=== PATIENT | female | born 1975 | race Caucasian/White ===

== ENCOUNTER 2021-09-12 22:40 | Emergency (ER) | payer OTHER, SELFPAY ==
--- NOTE | 2021-09-12 | ECG_ITS ---
Test Reason : med clearance Blood Pressure : / mmHG Vent. Rate : 076 BPM Atrial Rate : 076 BPM P-R Int : 140 ms QRS Dur : 082 ms QT Int : 390 ms P-R-T Axes : 079 090 059 degrees QTc Int : 438 ms Normal sinus rhythm Rightward axis Borderline ECG No previous ECGs available Referred By: Kalin Dial Electronically Signed By:Guy Luque
[2021-09-12 22:49] VITALS: BP 129/82; PULSE 99; RESP 18; TEMP 36.6; O2SAT 98; BMI 23.4
[2021-09-12 23:31] LABS: COVID-19 Test Negative (Negative)
[2021-09-12 23:40] LABS: Basophils Percent Auto 0.4 % (0-2); Eosinophils Absolute Auto 0.1 X10*3/uL (0.0-0.4); Eosinophils Percent Auto 1.7 % (0-4); Hematocrit 43.2 % (37.0-47.0); Hemoglobin 14.5 g/dl (12.0-16.0); Imm Gran Abs Auto 0.02 X10*3/uL (0.00-0.03); Imm Gran Pct Auto 0.3 % (0.0-0.4); Lymphocytes Absolute Auto 1.9 X10*3/uL (1.2-4.9); Lymphocytes Percent Auto 26.5 % (20-40); MANUAL DIFF FLAG NO; Mean Corpuscular HGB Conc 33.6 g/dl (31.0-35.0); Mean Corpuscular Hemoglobin 30.9 pg (27.0-33.0); Mean Corpuscular Volume 92.1 fL (80.0-98.0); Mean Platelet Volume 10.4 fL (9.4-12.3); Monocytes Absolute Auto 0.4 X10*3/uL (0.1-1.2); Monocytes Percent Auto 5.5 % (2-11); Neutrophils Absolute Auto 4.8 x10*3/uL (2.0-8.3); Neutrophils Percent Auto 65.6 % (45-73); Platelet Count 251 X10*3/uL (160-400); Red Blood Count 4.69 X10*6/uL (4.20-5.50); Red Cell Distribution Width 14.9 % (11.0-16.0); White Blood Count 7.2 X10*3/uL (4.8-10.8)
[2021-09-13] LABS: Ethanol 241 mg/dL
--- NOTE | 2021-09-13 00:03 | PC.NURSE ---
Provider just sutured her open skin on her base of right thumb, area washed with NS, pad dry, applied thin layer of Bacitracin, covered with dressing, secured with tape, as ordered by the provider, will continue to monitor.
[2021-09-13 00:12] LABS: Alanine Aminotransferase 21 U/L (0-31); Albumin Level 4.3 g/dL (3.5-5.0); Alkaline Phosphatase 99 U/L (39-117); Anion Gap 13 (12-20); Aspartate Amino Transferase 33 U/L (5-31); Bilirubin Direct 0.2 mg/dL (0.0-0.5); Bilirubin Total 0.5 mg/dL (0.0-1.0); Blood Urea Nitrogen 10 mg/dL (9-16); Carbon Dioxide 30 mmol/L (22-29); Chloride 107 mmol/L (96-108); Creatinine Clr Calc Pharmacy 53.1; Estimated Glomerular Filt Rate > 60; Glucose Random 75 mg/dL (60-115); Magnesium 2.5 mg/dL (1.6-2.6); Potassium 3.4 mmol/L (3.3-5.1); Sodium 147 mmol/L (135-145); Total Protein 7.5 g/dL (6.5-8.0)
[2021-09-13 00:48] LABS: Acetaminophen LAB < 1 mcg/mL (<30); Salicylate < 5.0 mg/dL (15-30)
--- NOTE | 2021-09-13 02:15 | ED_ITS ---
HPI - Psych General Chief Complaint: Psychiatric Symptoms Stated Complaint: si Time Seen by Provider: 09/12/21 23:26 Source: patient and RN notes reviewed Mode of arrival: EMS Limitations: no limitations History of Present Illness HPI Narrative: 45-year-old female who presents to the emergency department for evaluation of alcohol intoxication, suicidal ideation and laceration to her right thumb. According to the nursing notes, the patient made suicidal statements and stated that she wanted to slit her throat. She punched a window and cut her right thumb. The patient told me that her son was shot and killed 3 days prior. She states that this is her 2nd son that was murdered. She states that she has a history of depression, anxiety and PTSD and did not take her medications today. She states that she was drinking Tequila. She did tell me that she punched a window and cut her right thumb. She denied suicidal ideation during my interview. 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 Past surgical history: Right ankle surgery. Social history: The patient states that she was sober for 4 years but started drinking again. She does admit to drinking alcohol this evening. She smokes 1/2 pack of cigarettes per day 28 years. She states she does smoke crack cocaine. Social History Social History Patient : No Physical Exam Vital Signs: Vital Signs: Last Vital Signs Temp 97.8 F 09/12/21 22:49 Pulse 99 09/12/21 22:49 Resp 18 09/12/21 22:49 BP 129/82 09/12/21 22:49 Pulse Ox 98 09/12/21 22:49 BMI result Body Mass Index 23.4 Const: Other: Cooperative female patient, she does have an odor of alcohol on her breath and does appear to be intoxicated, she answers all questions appropriately HENMT: Head: Yes normal to inspection, Yes normocephalic and Yes atraumatic Ears: external ears normal General nose exam: Normal external nose present Face and sinus: Yes normal facial exam Mouth: Normal oral and palatal mucosa present Throat: Yes posterior oropharynx normal Eyes: General: appearance normal, both eyes and all related structures Pupils: Equal, round and reactive pupils present Neck: Neck: Yes normal visual inspection, Yes no lymphadenopathy, Yes trachea midline and Yes supple Chest: Chest palpation & inspection: normal inspection of the chest and normal palpation of entire chest wall Resp: Effort & Inspection: normal respiratory effort and able to speak in complete sentences Auscultation: clear to auscultation bilaterally Cardio: Rate: regular rate Rhythm: regular rhythm Heart sounds: S1 normal heart sound present, S2 normal heart sound present and no murmurs GI: Inspection: Yes normal to inspection Palpation (GI): Soft to palpation, nontender and no guarding Auscultation: normal bowel sounds : General: Yes no CVA tenderness Back/Spine/Pelvis: Back: no CVA tenderness Skin: General skin exam: no rashes or lesions noted Neuro: Cranial nerves: Yes CN's II-XII intact bilaterally and Yes Equal, round and reactive pupils present Cognition (Neuro): normal cognition Motor exam (neuro): 5/5 motor strength present throughout Extrem: Other: 3.0 cm stellate laceration to the right dorsal aspect of the PIP joint of her thumb, the laceration is full skin thickness, the patient has full range of motion with normal sensory exam. Psych: Appearance: grossly normal Speech and movement: Normal speech and movement present Affect: Other affect and mood findings present (Appears intoxicated) Attitude: cooperative Thought process: Normal thought process present Thought content: suicidality Course Course Course Narrative: 45-year-old female with a history of depression, anxiety, PTSD, alcohol use disorder and cocaine use disorder who presents emergency department for evaluation of suicidal statement, alcohol intoxication and laceration to her right thumb after punching a window. Vital signs were normal. Her exam was consistent with alcohol intoxication. She did have a stellate laceration to her right PIP joint of her thumb which I repaired with 7 sutures, 3.0 Ethilon. These sutures will need to be in place for 7-10 days. Patient told me that her tetanus status was up-to-date she believes that she got 1 within 5 years. The patient is on a Section 12. 0224: Laboratory evaluation: CBC was normal. Sodium was elevated 147, bicarb was elevated 30, AST was elevated 33. Blood alcohol level was 241 consistent with acute intoxication. Acetaminophen and salicylate levels were below detectable limits. COVID-19 test was negative. Drug urine tox screen is pending urine collection. 0224: Start physician observation: The patient will be observed until she is sober and can talk to our crisis team. The patient is not on a Section 12 at this time. The patient's care was turned over to my colleague, Dr. Johanna Barkley. MDM - Psych Lab Data Result diagrams: 09/12/21 23:34 09/12/21 23:34 Labs: Lab Results 09/12/21 09/12/21 09/12/21 Range/Units 23:08 23:34 23:34 WBC 7.2 (4.8-10.8) X10*3/uL RBC 4.69 (4.20-5.50) X10*6/uL Hgb 14.5 (12.0-16.0) g/dl Hct 43.2 (37.0-47.0) % MCV 92.1 (80.0-98.0) fL MCH 30.9 (27.0-33.0) pg MCHC 33.6 (31.0-35.0) g/dl RDW 14.9 (11.0-16.0) % Plt Count 251 (160-400) X10*3/uL MPV 10.4 (9.4-12.3) fL Immature Gran % (Auto) 0.3 (0.0-0.4) % Neut % (Auto) 65.6 (45-73) % Lymph % (Auto) 26.5 (20-40) % [place] % (Auto) 5.5 (2-11) % Eos % (Auto) 1.7 (0-4) % Baso % (Auto) 0.4 (0-2) % Lymph # (Auto) 1.9 (1.2-4.9) X10*3/uL [place] # (Auto) 0.4 (0.1-1.2) X10*3/uL Eos # (Auto) 0.1 (0.0-0.4) X10*3/uL Baso # (Auto) 0.0 (0.0-0.2) X10*3/uL Abs Immat Gran (auto) 0.02 (0.00-0.03) X10*3/uL Absolute Neuts (auto) 4.8 (2.0-8.3) x10*3/uL Absolute Nucleated RBC 0.000 (0.0-0.012) X10*3/uL Nucleated RBC % (auto) 0.0 (0.0-0.2) /100WBC Sodium (135-145) mmol/L Potassium (3.3-5.1) mmol/L Chloride (96-108) mmol/L Carbon Dioxide (22-29) mmol/L Anion Gap (12-20) BUN (9-16) mg/dL Creatinine (0.5-1.4) mg/dL Estim Creat Clear Calc Estimated GFR Random Glucose (60-115) mg/dL Calcium (8.4-10.2) mg/dL Magnesium (1.6-2.6) mg/dL Total Bilirubin (0.0-1.0) mg/dL Direct Bilirubin (0.0-0.5) mg/dL AST (5-31) U/L ALT (0-31) U/L Alkaline Phosphatase (39-117) U/L Total Protein (6.5-8.0) g/dL Albumin (3.5-5.0) g/dL Salicylates (15-30) mg/dL Acetaminophen (<30) mcg/mL Ethyl Alcohol 241 mg/dL COVID-19 ([facility]) Negative (Negative) COVID-19 Clin Com See Note 09/12/21 Range/Units 23:34 WBC (4.8-10.8) X10*3/uL RBC (4.20-5.50) X10*6/uL Hgb (12.0-16.0) g/dl Hct (37.0-47.0) % MCV (80.0-98.0) fL MCH (27.0-33.0) pg MCHC (31.0-35.0) g/dl RDW (11.0-16.0) % Plt Count (160-400) X10*3/uL MPV (9.4-12.3) fL Immature Gran % (Auto) (0.0-0.4) % Neut % (Auto) (45-73) % Lymph % (Auto) (20-40) % [place] % (Auto) (2-11) % Eos % (Auto) (0-4) % Baso % (Auto) (0-2) % Lymph # (Auto) (1.2-4.9) X10*3/uL [place] # (Auto) (0.1-1.2) X10*3/uL Eos # (Auto) (0.0-0.4) X10*3/uL Baso # (Auto) (0.0-0.2) X10*3/uL Abs Immat Gran (auto) (0.00-0.03) X10*3/uL Absolute Neuts (auto) (2.0-8.3) x10*3/uL Absolute Nucleated RBC (0.0-0.012) X10*3/uL Nucleated RBC % (auto) (0.0-0.2) /100WBC Sodium 147 H (135-145) mmol/L Potassium 3.4 (3.3-5.1) mmol/L Chloride 107 (96-108) mmol/L Carbon Dioxide 30 H (22-29) mmol/L Anion Gap 13 (12-20) BUN 10 (9-16) mg/dL Creatinine 0.97 (0.5-1.4) mg/dL Estim Creat Clear Calc 53.1 Estimated GFR > 60 Random Glucose 75 (60-115) mg/dL Calcium 9.0 (8.4-10.2) mg/dL Magnesium 2.5 (1.6-2.6) mg/dL Total Bilirubin 0.5 (0.0-1.0) mg/dL Direct Bilirubin 0.2 (0.0-0.5) mg/dL AST 33 H (5-31) U/L ALT 21 (0-31) U/L Alkaline Phosphatase 99 (39-117) U/L Total Protein 7.5 (6.5-8.0) g/dL Albumin 4.3 (3.5-5.0) g/dL Salicylates < 5.0 L (15-30) mg/dL Acetaminophen < 1 (<30) mcg/mL Ethyl Alcohol mg/dL COVID-19 ([facility]) (Negative) COVID-19 Clin Com Procedures Laceration 3.0 cm stellate lac right thumb PIP joint: Site: hand (PIP joint of the thumb) Side (If applicable): right Size (cm): 3.0 Description: stellate Depth: simple, single layer Local Anesthetic: lidocaine 1% Amount of anesthesia used (mL): 5 Pre-repair: wound explored Skin layer closed with: nylon Size (cm): 3-0 Number of sutures: 7 Technique: simple, interrupted Discharge Plan Discharge Clinical Impression: Suicidal ideations, Alcohol intoxication, Laceration of thumb without complication Patient Disposition: Still a Patient
--- NOTE | 2021-09-13 05:39 | PC.NURSE ---
Patient slept through the night, no distress observed/reported, behavior cooperative, patient has stellate laceration on right thumb base, sutured with 7 stitches, covered with dressing at this time, per pharmacy information provided by the patient, patient is not currently on any medication, [facility] referral completed/confirmed and patient will be screened in the morning, patient can be sectioned if patient request for discharge, per provider patient needs to be assessed by crises, will continue to monitor.
[2021-09-13 06:25] VITALS: BP 118/64; PULSE 94; RESP 16; TEMP 37.4; O2SAT 97
--- NOTE | 2021-09-13 07:15 | PC.NURSE ---
patient appears to remain at rest at present, respirations are even and unlabored, paitent appears in no distress
--- NOTE | 2021-09-13 07:29 | PHA.MEDREC ---
Pharmacy Consult ? Medication Reconciliation Pharmacy has completed the medication reconciliation. Patient reports taking Gabapentin at bedtime but the medication has not been filled since 04/10/2021 per PDMP. She reports she no longer takes trazodone. Shahla Ford, Maria VictoriaD
== END 2021-09-13 10:31 | disposition home or self-care (01) ==
PROVIDERS: Emergency Provider Emergency Medicine Emergency Medical Services; PCP Internal Medicine
DX: R45.851 Suicidal ideations (principal); F10.920 Alcohol use, unspecified with intoxication, uncomplicated; F14.988 Cocaine use, unspecified with other cocaine-induced disorder; Y90.8 Blood alcohol level of 240 mg/100 ml or more; S61.011A Laceration without foreign body of right thumb without damage to nail, initial encounter; X78.0XXA Intentional self-harm by sharp glass, initial encounter; Z20.822 Contact with and (suspected) exposure to COVID-19; F32.A Depression, unspecified; F41.9 Anxiety disorder, unspecified; F43.10 Post-traumatic stress disorder, unspecified; Z72.89 Other problems related to lifestyle; Z63.4 Disappearance and death of family member; Z79.899 Other long term (current) drug therapy; Y93.9 Activity, unspecified; Y92.9 Unspecified place or not applicable; Y99.9 Unspecified external cause status
CPT/HCPCS: 12002; 36415; 80048; 80076; 80143; 80179; 82077; 83735; 85025; 87635; 93005; 99284

== ENCOUNTER 2022-02-02 18:41 | Emergency (ER) | payer OTHER, SELFPAY ==
[2022-02-02 18:55] VITALS: BP 116/87; PULSE 108; RESP 18; TEMP 36.6; O2SAT 98; BMI 21.4
[2022-02-02 19:51] VITALS: BP 110/75; PULSE 94; RESP 12; TEMP 36.5; O2SAT 100
--- NOTE | 2022-02-02 19:51 | ED.EXTPRO ---
HPI - Extremity Problem General Chief complaint: Extremity Injury, Upper Stated complaint: between finger lac Source: patient Mode of arrival: ambulatory Limitations: no limitations History of Present Illness HPI Narrative: 46-year-old female presents with laceration to the top of her left hand. Patient cut her hand on the lid of a can. MD Complaint: extremity pain and other (Laceration) Onset (ago): hour(s) (Within the hour of arrival) Pain Consistency: constant Location: left and upper extremity Severity scale (1-10): 8 Quality: burning Radiation: none Relieving factors: nothing Exacerbating factors: range of motion and palpation Associated symptoms: denies other symptoms Related Data Home Medications Medication Instructions Recorded Confirmed acamprosate 333 mg tablet,delayed 333 mg PO BEDTIME 09/13/21 09/13/21 release albuterol sulfate 90 mcg/actuation 2 puff INHALATION Q4H PRN 09/13/21 09/13/21 aerosol inhaler (ProAir HFA) calcium carbonate 600 mg-vitamin 1 tab PO BID 09/13/21 09/13/21 D3 10 mcg (400 unit) tablet celecoxib 200 mg capsule 1 cap PO DAILY 09/13/21 09/13/21 clonidine HCl 0.1 mg tablet 0.1 mg PO BEDTIME 09/13/21 09/13/21 doxepin 10 mg capsule 10 mg PO BEDTIME 09/13/21 09/13/21 fluoxetine 40 mg capsule 40 mg PO BEDTIME 09/13/21 09/13/21 hydroxyzine HCl 25 mg tablet 25 mg PO TID 09/13/21 09/13/21 melatonin 5 mg tablet 10 mg PO BEDTIME 09/13/21 09/13/21 Previous Rx's Medication Instructions Recorded amoxicillin 875 mg-potassium 1 tab PO Q12H 7 Days #14 tab 02/02/22 clavulanate 125 mg tablet oxycodone 5 mg tablet 5 mg PO Q6H PRN 3 Days #12 tab 02/02/22 Allergies Allergy/AdvReac Type Severity Reaction Status Date / Time No Known Allergies Allergy Unverified 06/02/20 16:33 [No Known Allergies*] Review of Systems Review of Systems: Constitutional: No Fever, No Chills ENT/Mouth: No Ear Pain, No Hoarseness, No sore throat Eyes: No Eye Pain, No Swelling, No Redness, No Foreign Body Cardiovascular: No Chest Pain, No SOB Respiratory: No Cough, No Dyspnea Gastrointestinal: No Nausea, No Vomiting, No Diarrhea, No abdominal Pain Genitourinary: No Dysuria, No Hematuria Musculoskeletal: positive left hand pain, No Myalgias, No Joint Swelling Skin: Left hand laceration, No rash Neuro: No Weakness, No Numbness, No Paresthesias, No Loss of Consciousness, No Dizziness, No Headache Psych: No Anxiety/Panic, No Depression Heme/Lymph: no easy bruising, no Lymphadenopathy Endocrine: No Polyuria, No Polydipsia Yes all other systems are reviewed and are negative [facility] Past Medical History Attestation statement: The following information was validated with the patient. Source: old records reviewed Social History Social History Advance Directives: No Advance Directives Information Provided: Yes Physical Exam Vital Signs: Vital Signs: Last Vital Signs Temp 97.7 F 02/02/22 19:51 Pulse 94 02/02/22 19:51 Resp 12 02/02/22 19:51 BP 110/75 02/02/22 19:51 Pulse Ox 100 02/02/22 19:51 BMI result Body Mass Index 21.4 Appearance: Alert. Oriented X3. Mild distress. Eyes: Pupils equal, round and reactive to light. ENT: Pharynx normal. Neck: Normal inspection. Neck supple. CVS: Normal heart rate and rhythm. Pulses normal. Respiratory: No respiratory distress. Breath sounds normal. Abdomen: Soft and nontender. Skin: 6 cm laceration to the dorsal aspect of the left hand. Extremities: Brisk capillary refill and equal pulses. Full range of motion to all digits, strength 5/5 to all digits. Neuro: No motor deficit. No sensory deficit. Cranial nerves 2-12 intact. Course Course Course Narrative: 46-year-old female presents with laceration to the dorsal aspect of the left hand. Cut her hand accidentally while opening a can of meat. Patient does have full range of motion to all extremities, no indication of tendon deficit on flexion and extension. Will update Tdap vaccine today. Wound is deep with suspected arterial bleed. Prepped and draped in sterile fashion. 10 mL of lidocaine % for anesthetic with good effect. Irrigated with copious amounts of normal saline under pressure, Betadine cleanse. Dr. Fernandez at bedside to assist with arterial suture. Dr. Fernandez placed 3 absorbable 4-0 sutures inside the incision and was able to stop the arterial bleeding. Please refer to procedure note details. 21:37 patient continues with brisk capillary refill in equal pulses. Full range of motion and no indication of tendon deficit. Will have patient follow-up with Dr. Hobson on Saturday. Will give antibiotics Augmentin twice a day for the next 7 days. Patient verbalized understanding of and agrees to plan of care to discharge home. Verbalized understanding of signs and symptoms indicating need for emergent intervention MDM - Extremity (Nontraumatic) MDM Narrative Medical decision making narrative: Laceration Medical Records Attestation: I reviewed the patient's medical records. Procedures Laceration Laceration 1: Site: hand Side (If applicable): left Size (cm): 6 Description: linear Depth: simple, single layer and involves muscle layer Local Anesthetic: lidocaine 1% Amount of anesthesia used (mL): 10 Pre-repair: wound explored and irrigated extensively Skin layer closed with: nylon Size (cm): 4-0 Number of sutures: 8 Technique: simple, interrupted Subcutaneous layer closed with: chromic gut Size: 4-0 Number of sutures: 3 Technique: simple, interrupted Discharge Plan Discharge Clinical Impression: Laceration of hand Patient Disposition: Home, Self-Care Instructions: Care For Your Stitches (ED), Laceration (ED) Additional Instructions: You were evaluated in the emergency department for hand laceration. You have 3 internal sutures and 8 external sutures. You must follow-up with hand surgery. Please follow-up with Dr. Hobson. Call and request an appointment. We prescribed oxycodone for pain management. This medication is a narcotic and has high risk for addiction and abuse. Do not drive or operate machinery while taking this medication. This medication can cause constipation, delayed reaction time, increased risk for falls, and cause drowsiness. Use MiraLax and or Colace to help soften stools, to prevent constipation. Drink plenty of fluids. We prescribed Augmentin 875 mg twice a day for the next 7 days. Please finish the entire course of this medication. Thank you for choosing this emergency department for evaluation. Please follow-up with primary care physician as needed. Return to the emergency department for any new, concerning, or worsening symptoms. Prescriptions: New amoxicillin-pot clavulanate 875-125 mg tablet 1 tab PO Q12H 7 Days Qty: 14 0RF oxycodone 5 mg tablet 5 mg PO Q6H PRN (Reason: pain) 3 Days Qty: 12 0RF Rx Instructions: Hand laceration No Action fluoxetine 40 mg capsule 40 mg PO BEDTIME 0RF clonidine HCl 0.1 mg tablet 0.1 mg PO BEDTIME 0RF doxepin 10 mg capsule 10 mg PO BEDTIME 0RF hydroxyzine HCl 25 mg tablet 25 mg PO TID 0RF albuterol sulfate [ProAir HFA] 90 mcg/actuation HFA aerosol inhaler 2 puff inhalation Q4H PRN (Reason: Wheezing) 0RF acamprosate 333 mg tablet,delayed release (DR/EC) 333 mg PO BEDTIME 0RF calcium carbonate-vitamin D3 600 mg-10 mcg (400 unit) tablet 1 tab PO BID 0RF celecoxib 200 mg capsule 1 cap PO DAILY 0RF melatonin 5 mg tablet 10 mg PO BEDTIME 0RF Referrals: Barbie Hobson MD [Physician] - (Hand laceration) Interventions: ED Discharge Assessment Last Done: 02/02/22 21:50 Discharge Date/Time: 02/02/22 21:51
[2022-02-02] MEDS: Lidocaine HCl 1 % MPF 5 ML VIAL SUBCUT (20:05)
[2022-02-02] MEDS: Diphth,Pertus(ACell),Tet Adult 0.5 ML SYRINGE IM (20:05)
[2022-02-02] MEDS: oxyCODONE HCl Immed Release 5 MG TABLET PO (21:47)
[2022-02-02] MEDS: Amoxicillin/Potassium Clav 875 MG TABLET PO (21:47)
== END 2022-02-02 21:51 | disposition home or self-care (01) ==
PROVIDERS: Emergency Provider Internal Medicine
DX: S61.412A Laceration without foreign body of left hand, initial encounter (principal); W26.8XXA Contact with other sharp object(s), not elsewhere classified, initial encounter; Y93.9 Activity, unspecified; Y92.9 Unspecified place or not applicable; Y99.9 Unspecified external cause status
CPT/HCPCS: 12042; 90715; 99283; 99284